=== PATIENT | male | born 1980 | race African-American/Black ===

== ENCOUNTER 2020-07-05 15:07 | Emergency (ER) | payer MEDICAID, SELFPAY ==
[2020-07-05] VITALS (8 sets, daily range): BP systolic 106–141; BP diastolic 71–85; PULSE 86–123; RESP 15–16; TEMP 36.2; O2SAT 98; BMI 23.3
--- NOTE | 2020-07-05 15:51 | EKG12_ITS ---
Test Reason : Blood Pressure : / mmHG Vent. Rate : 097 BPM Atrial Rate : 097 BPM P-R Int : 160 ms QRS Dur : 090 ms QT Int : 358 ms P-R-T Axes : 073 043 068 degrees QTc Int : 454 ms Normal sinus rhythm Normal ECG Confirmed by ELIEZER ELIZONDO, JOSEPH ([id number]), technical editor JOSELUIS CARBAJAL ([id number]) on 07/09/2020 10:54:32 AM Referred By: Confirmed By:JOSEPH MARTINS MD
--- NOTE | 2020-07-05 15:55 | ED.VIS.PSYCH ---
History of Present Illness Chief Complaint: Mental Health Informant: Patient, Enterprise Integration Developer Limited: Uncooperative Associated Symptoms: Paranoia, Visual Hallucinations, -. Negative for: Suicidal Thoughts Narrative: Patient is a 39-year-old male with history of paranoid schizophrenia presenting from [place] for psychiatric evaluation. Patient states he does not feel safe and has been feeling paranoid. He also associated Flonase anything for spirits. Patient denies any homicidal suicidal ideations. Patient relates this to the nursing staff but would not speak to me. He did not provide any history to me and only stared at me. Past Medical History Primary Care Physician: Care Physician,No Primary [Primary Care Provider] - Past Medical History: - - Paranoid schizophrenia Surgical History: noncontributory Lives: - - jail Smoking Status: Current every day smoker Review of Systems ROS: Unable to Obtain - Patient does not answer any questions for me Psych: Reports: - - Visual hallucinations, paranoia Physical Exam Vital Signs/Narrative: Vital Signs Temp Pulse Resp BP Pulse Ox 07/05/20 15:09 97.2 F L 123 H 15 117/85 H 98 Inital Vital Signs reviewed: Yes General: Well nourished, Well developed Head: Normocephalic, Atraumatic Eyes: Perrl, EOMI ENT: Moist mucous membranes, No rhinorrhea Neck: Supple, Nontender Cardiovascular: Regular rhythm, No murmurs, Tachycardia Respiratory: No distress, CTA bilaterally, Chest nontender Abdomen: Soft, Nontender, Nondistended, Normal bowel sounds Back: Nontender, Normal Inspection Extremities: Nontender, No Edema Skin: Normal color, No rash Neurological: Alert, Oriented x3, Cranial nerves II-XII grossly intact, Normal Strength, Normal Sensation Psych: Poverty of Speech, - - Withdrawn Diagnostic/Tx/Re-eval Clinical Impression(s) from Imaging Studies Chest X-Ray 07/05/20 16:10 IMPRESSION: Normal x-ray examination of the chest. Electronically Signed: Veto Bundy MD at 16:30 EST Tel , Service support , Laboratory Data 07/05/20 07/05/20 07/05/20 16:00 16:00 16:30 WBC 10.5 RBC 4.82 Hgb 15.1 Hct 43.7 MCV 90.7 MCH 31.3 MCHC 34.6 RDW Std Deviation 44.9 H RDW Coeff of Kavitha 13.4 Plt Count 221 MPV 9.7 Immature Gran % (Auto) 0.300 Neut % (Auto) 77.1 H Lymph % (Auto) 13.2 L [place] % (Auto) 6.7 Eos % (Auto) 2.3 Baso % (Auto) 0.4 Absolute Neuts (auto) 8.1 H Absolute Lymphs (auto) 1.39 Nucleated RBC % 0 Sodium 140 Potassium 4.1 Chloride 111 H Carbon Dioxide 26.0 Anion Gap 3 L BUN 10 Creatinine 1.13 Estim Creat Clear Calc 100.02 Est GFR (MDRD) Af Amer 92 Est GFR (MDRD) Non-Af 76 BUN/Creatinine Ratio 8.8 L Glucose 85 Calcium 8.9 Total Bilirubin 0.30 AST 14 L ALT 17 Alkaline Phosphatase 83 Total Protein 7.2 Albumin 3.7 Globulin 3.5 Albumin/Globulin Ratio 1.1 TSH 0.87 Urine Opiates Screen NEGATIVE Urine Methadone Screen NEGATIVE Ur Barbiturates Screen NEGATIVE Ur Phencyclidine Scrn NEGATIVE Ur Amphetamines Screen NEGATIVE U Methamphetamin-MDMA NEGATIVE U Benzodiazepines Scrn NEGATIVE Urine Cocaine Screen NEGATIVE U Cannabinoids Screen POSITIVE H Ur Drug Screen Comment - Rhythm Strip Rhythm Strip: Sinus Rhythm Rate: 97 Ectopy: None - EKG Initial EKG Interpretation: Sinus Rhythm, - - Normal sinus rhythm at a rate of of 97 Normal axis Normal intervals Normal ST segments Patient evaluated for increase psychiatric symptoms. Patient has displayed increased paranoia and is now having visual hallucinations. Patient is completely withdrawn on my examination and will not contribute at all to his history. [place] is subtheraputic. Patient is medically cleared and will be evaluated by case management for potential psychiatric placement. ED Disposition - Plan for ED Patient: Instructions: ED Schizophrenia, Paranoid Type Referrals: Care Physician,No Primary [Primary Care Provider] -
--- NOTE | 2020-07-05 16:10 | RAD_ITS ---
STUDY: X-RAY CHEST REASON FOR EXAM: Male, 39 years old. MENTAL HEALTH EVAL. HALLUCINATIONS. TECHNIQUE: Single AP portable view of the chest. COMPARISON: None. FINDINGS: The lungs are clear and expanded. There is no demonstrated pleural abnormality. Normal size heart. Normal mediastinum and betsy. Normal visualized pulmonary arteries. Normal visualized aortic arch and descending thoracic aorta. Normal visualized thoracic spine. Normal visualized ribs, clavicles, and shoulders. There is no demonstrated abnormality of the visualized soft tissue structures of the upper abdomen. RAD/Chest 1 View (Portable) IMPRESSION: Normal x-ray examination of the chest. Electronically Signed: Veto Bundy MD at 16:30 EST Tel , Service support ,
[2020-07-05 16:31] LABS: Absolute Lymphocyte Count 1.39 X10^3/uL (0.83-4.51); Absolute Neutrophil Count 8.1 X10^3/uL (2.0-7.7); Basophil# 0.04 X10^3/uL; Basophil% 0.4 % (0-1); Eosinophil# 0.24 X10^3/uL; Eosinophils% 2.3 % (0-5); Hematocrit 43.7 % (40-54); Hemoglobin 15.1 g/dL (13.0-16.5); Lymphocyte # 1.39 X10^3/ul (4.0); Lymphocyte % 13.2 % (19-41); Mean Corp Hgb Conc 34.6 g/dL (32-36); Mean Corpuscular Hgb 31.3 pg (27.0-32.0); Mean Corpuscular Volume 90.7 fL (80-94); Mean Platelet Vol. 9.7 fl (6.2-12.0); Monocyte# 0.71 X10^3/uL; Monocyte% 6.7 % (0-10); NRBC Flagged by Analyzer 0 % (0-5); Neutrophil # 8.11 X10^3/uL (2.7-7.7); Neutrophil % 77.1 % (47-70); Platelet Count 221 K/mm3 (150-450); RBC Distribution Width CV 13.4 % (11.6-14.6); RBC Distribution Width SD 44.9 fl (35.1-43.9); Red Blood Count 4.82 M/mm3 (4.6-6.2); White Blood Count 10.5 K/mm3 (4.4-11.0)
[2020-07-05 16:41] LABS: ALB/GLOB Ratio 1.1 RATIO (0.9-2.4); AST(SGOT) 14 U/L (15-37); Alanine Aminotransfer ALT/SGPT 17 U/L (16-61); Albumin, Serum 3.7 g/dL (3.2-5.0); Alkaline Phosphatase 83 U/L (45-117); Anion Gap 3 (5-15); BUN 10 mg/dL (7-18); BUN/Creat Ratio 8.8 RATIO (10-20); Calcium,Total 8.9 mg/dL (8.5-10.1); Chloride 111 mmol/L (98-107); Creatinine, Serum 1.13 mg/dL (0.70-1.30); EST Glomerular Filtration Rate 76 mL/min (>60); Est Glom Filt Rate - Afr Amer 92 mL/min (>60); Estimated Creatinine Clearance 100.02 ml/min; Globulin 3.5 g/dL (2.2-4.2); Glucose 85 mg/dL (74-106); Potassium 4.1 mmol/L (3.5-5.1); Protein, Total 7.2 g/dL (6.4-8.2); Sodium Level 140 mmol/L (136-145); Thyroid Stim Hormone (TSH) 0.87 uIU/mL (0.358-3.74)
[2020-07-05 17:01] LABS: Amphetamine Urine VISTA NEGATIVE (<1000 ng/mL); Barbiturate Urine VISTA NEGATIVE (< 200 ng/mL); Benzodiazepine Urine VISTA NEGATIVE (< 200 ng/mL); Cocaine Urine VISTA NEGATIVE (< 300 ng/mL); Ecstacy Urine VISTA NEGATIVE (< 500 ng/mL); Methadone Urine VISTA NEGATIVE (< 300 ng/mL); PCP Urine VISTA NEGATIVE (< 25 ng/mL); THC Urine VISTA POSITIVE (< 50 ng/mL); Vista UDS pH Range 6
--- NOTE | 2020-07-05 17:31 | CM.ED ---
SOCIAL WORK ASSESSMENT Informant: Dr. Soliz Reason for Consult: Mental Health Evaluation Chief Compliant: Patient brought in by squad from [facility]. Patient reported to nursing upon arrival that he needs help and wants to go somewhere I feel safe. Patient reports history of schizophrenia and is treated with medication. Marital/Social History: Single Living Situation: [facility] Support/Resources: Unknown History: No Education and Employment History: Unknown Mental Health Treatment/History: Patient reports history of schizophrenia and is treated with medication. Triggers/Stressors: Patient reported visual hallucinations to nurseDebbi. Coping Skills: Unknown Abuse Issues: Unknown Substance Abuse History: Patient tox screen is positive for marijuana. Risk to Self/Others: Suicidal- Patient reports history of suicidal ideation. Patient denied any current suicidal ideation to nursing. Homicidal- Patient denies homicidal ideation to nursing Mental Status Exam: Orientation- Memory- Appearance/General Behavior: unclean Mood/Affect: flat Communication Pattern: Patient does not respond to this worker's questions. Patient with blank stare at the wall. No eye contact. Thought Process: visual hallucinations reported to nursing, paranoia Judgment: unable to evaluate Assessment: Attempted to assess patient along with nurse who triaged patient. Patient will not make eye contact or communicate at this time. Patient reported to nurse upon arrival he does not feel safe. Patient voiced visual hallucinations, seeing floaters that are spirits. Collaboration with Dr. Soliz. Plan for inpatient psych for stabilization. This worker to facilitate placement. Plan: Referral to inpatient psych MARGARITA Leggett, PRODUCT GRADER
--- NOTE | 2020-07-05 18:07 | CM.ED ---
SOCIAL WORK Call to [facility] to check bed availability, spoke with [facility]. Per [facility], bed available and will review referral. Awaiting COVID-19 results at this time. Flores Lowe, MARKETING TRAFFIC COORDINATOR, LAND LEASING INFORMATION CLERK
--- NOTE | 2020-07-05 19:43 | CM.ED ---
SOCIAL WORK Received call from [facility] with additional questions regarding referral. Nurse to review with physician and get back to this worker. Flores Lowe, FILL PLANT OPERATOR, DIRECTOR OF OCCUPATIONAL HEALTH
--- NOTE | 2020-07-05 20:45 | CM.ED ---
SOCIAL WORK Patient accepted to [facility] by Dr. Bennett. Nurse to call report to [phone]. [place] to set up transport. Dr. Bnenett has suggested patient be medicated with 2mg Ativan IM. Dr. Hunt updated. Patient and nurse updated on acceptance to [facility]. Flores Lowe, ULTRASONIC SEAMING MACHINE OPERATOR, DRIER AND GRINDER TENDER
== END 2020-07-05 22:33 ==
LOC: ED 17:08
PROVIDERS: Emergency Provider Emergency Medicine
DX: F20.0 Paranoid schizophrenia (principal); F17.200 Nicotine dependence, unspecified, uncomplicated
CPT/HCPCS: 36415; 71045; 80053; 80178; 80307; 82077; 84443; 85025; 87426; 93005; 99285

== ENCOUNTER 2021-11-29 15:48 | Emergency (ER) | payer MEDICAID, SELFPAY ==
[2021-11-29 15:49] VITALS: BP 123/90; PULSE 90; RESP 16; TEMP 36.4; O2SAT 97; BMI 25.7
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
[2021-11-29] MEDS: Ziprasidone IM 20 MG/ML VIAL IM (16:24)
[2021-11-29 17:24] LABS: Absolute Lymphocyte Count 1.31 X10^3/uL (0.83-4.51); Absolute Neutrophil Count 3.1 X10^3/uL (2.0-7.7); Basophil# 0.02 X10^3/uL; Basophil% 0.4 % (0-1); Eosinophil# 0.06 X10^3/uL; Eosinophils% 1.2 % (0-5); Hematocrit 43.3 % (40-54); Lymphocyte # 1.31 X10^3/ul (0.83-4.51); Lymphocyte % 26.6 % (19-41); Mean Corp Hgb Conc 34.6 g/dL (32-36); Mean Corpuscular Hgb 31.3 pg (27.0-32.0); Mean Corpuscular Volume 90.2 fL (80-94); Mean Platelet Vol. 9.3 fl (6.2-12.0); Monocyte# 0.38 X10^3/uL; Monocyte% 7.7 % (0-10); NRBC Flagged by Analyzer 0 % (0-5); Neutrophil # 3.14 X10^3/uL (2.7-7.7); Neutrophil % 63.9 % (47-70); Platelet Count 212 K/mm3 (150-450); RBC Distribution Width CV 13.9 % (11.6-14.6); RBC Distribution Width SD 45.9 fl (35.1-43.9); White Blood Count 4.9 K/mm3 (4.4-11.0)
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
[2021-11-29 17:45] LABS: ALB/GLOB Ratio 1.1 RATIO (0.9-2.4); AST(SGOT) 12 U/L (15-37); Alanine Aminotransfer ALT/SGPT 15 U/L (16-61); Albumin, Serum 3.8 g/dL (3.2-5.0); Alkaline Phosphatase 82 U/L (45-117); Anion Gap 5 (5-15); BUN 6 mg/dL (7-18); BUN/Creat Ratio 5.6 RATIO (10-20); Chloride 107 mmol/L (98-107); Creatinine, Serum 1.07 mg/dL (0.70-1.30); EST Glomerular Filtration Rate 80 mL/min (>60); Est Glom Filt Rate - Afr Amer 97 mL/min (>60); Globulin 3.4 g/dL (2.2-4.2); Glucose 90 mg/dL (74-106); Potassium 3.9 mmol/L (3.5-5.1); Protein, Total 7.2 g/dL (6.4-8.2); Sodium Level 139 mmol/L (136-145)
[2021-11-29] MEDS: DiphenhydrAMINE 50 MG/ML Syringe 25 MG IM (18:26)
[2021-11-29] MEDS: LORazepam 2 MG/ML Syringe IM (18:27)
[2021-11-29] MEDS: Haloperidol Lactate 5 MG/ML Vial IM (18:30)
--- NOTE | 2021-11-29 18:31 | ED.RN ---
PT CON TINUES TO BE OUT IN THE HALLWAY SCREAMING. PT CONTINUES TO CHEW THE NICOTINE PATCH. PT ADVISED THAT RESTRAINTS WERE TO BE APPLIES. PT ASKS NO--MEDICATION ORDERED. PT ALLOWS IM INJECTIONS
[2021-11-29 18:47] LABS: Amphetamine Urine VISTA NEGATIVE (<1000 ng/mL); Barbiturate Urine VISTA NEGATIVE (< 200 ng/mL); Benzodiazepine Urine VISTA NEGATIVE (< 200 ng/mL); Cocaine Urine VISTA NEGATIVE (< 300 ng/mL); Ecstacy Urine VISTA NEGATIVE (< 500 ng/mL); Methadone Urine VISTA NEGATIVE (< 300 ng/mL); PCP Urine VISTA NEGATIVE (< 25 ng/mL); THC Urine VISTA NEGATIVE (< 50 ng/mL); Vista UDS pH Range 6
--- NOTE | 2021-11-29 20:03 | CM.ED ---
JENIFFER faxed referral to Neha Nelson, Veda Freire, [facility], [facility] and [facility] for review. Neha called and advised patient was declined due to acuity. JENIFFER received voice mail from Vanda at [facility]. No acute beds tonight but if he needs a bed tomorrow a NEW referral will need to be faxed. Krista Hampton
--- NOTE | 2021-11-29 21:58 | CM.ED ---
Sophy from [facility] called. She inquired as to patient's current status. JENIFFER spoke to NOA Wasserman who stated that patient was redirectable and was willing to take medication. RN advised that patient's volumne and speech were the issue. JENIFFER provided this updated to Sophy at [facility] [phone]. JENIFFER also faxed covid results to [facility]. JENIFFER also updated Sophy about patient's medications. Sophy said that staff will need to call her at 10:30 to update her on his presentation. JENIFFER agreed that staff or counseling distribution center supervisor will follow up with her in 1 hour. JENIFFER called parts counterperson for the Counseling Center and requested call back. JENIFFER advised registration that patient has an guardian, Scott Arriaga [phone]. Krista BILL
[2021-11-29 22:34] VITALS: RESP 16
--- NOTE | 2021-11-29 22:47 | ED.RN ---
Sophy from [facility] calls and gives accepting information. Pt is accepted by Dr Nita Solis to the [facility]. Call [phone] for report.
--- NOTE | 2021-11-29 23:11 | ED.RN ---
BENNETT AT [facility] UPDATED ON PATIENT'S STATUS. REPORT CALLED TO ASHLEY LATHAM ON THE MAPLE UNIT.
[2021-11-30 00:54] VITALS: BP 97/62; PULSE 79; RESP 16; TEMP 36.4; O2SAT 100
[2021-11-30 01:00] VITALS: RESP 16
[2021-11-30 02:00] VITALS: RESP 16
[2021-11-30 03:00] VITALS: RESP 15
--- NOTE | 2021-11-30 03:05 | ED.RN ---
PHYSCIANS CALLED AND SAID THEIR CREW WAS GOING TO TIME OUT AND THAT THIS PATIENT WOULDN'T LEAVE UNTIL 0600 OR AFTER
[2021-11-30 06:00] VITALS: BP 116/78; PULSE 79; RESP 16; TEMP 36.7; O2SAT 100
--- NOTE | 2021-11-30 06:48 | ED.RN ---
PER AMBAR WITH PHYSICIANS CREW IS IN ROUTE AND SHOULD ARRIVE IN 10-15 MINUTES
== END 2021-11-30 07:24 ==
PROVIDERS: Emergency Provider Emergency Medicine; Visit Provider Emergency Medicine
DX: F20.9 Schizophrenia, unspecified (principal); F17.210 Nicotine dependence, cigarettes, uncomplicated
CPT/HCPCS: 80053; 80307; 82077; 85025; 87811; 93005; 99284; J3486

== ENCOUNTER 2024-04-04 13:02 | Emergency (ER) | payer MEDICAID, SELFPAY ==
[2024-04-04 13:03] VITALS: BP 125/83; PULSE 113; RESP 20; TEMP 36.4; O2SAT 100; BMI 19.7
--- NOTE | 2024-04-04 13:22 | ED.RN ---
PT CALLS OUT FOR NURSE. THIS RN IN ROOM. PT REQUESTS COFFEE AND NICOTINE PATCH. THIS RN INFORMS PT THAT WE NEED TO WAIT ON DOCTOR BEFORE WE CAN DO THIS. PATIENT PROVIDES URINE SAMPLE. THIS RN DRAWING BLOOD AND PT STATES PLEASE JUST PUT SOME AIR BUBBLES IN THERE WHILE YOU ARE DOING THAT PT STATES HE IS SEEING PEOPLE WHO ARE NOT THERE SOME OF THEM ARE TELLING ME I AM BAD AND I DESERVE TO SITTER AT BEDSIDE FOR PATIENT SAFETY.
--- NOTE | 2024-04-04 13:34 | EKG12_ITS ---
Test Reason : MEDICAL CLEARANCE Blood Pressure : */* mmHG Vent. Rate : 87 BPM Atrial Rate : 87 BPM P-R Int : 146 ms QRS Dur : 90 ms QT Int : 392 ms P-R-T Axes : 78 24 69 degrees QTcB Int : 471 ms Normal sinus rhythm Normal ECG Confirmed by ELIEZER ELIZONDO, JOSEPH ([id number]), mapping editor JOSELUIS CARBAJAL ([id number]) on 04/05/2024 1:50:34 PM Referred By: Confirmed By: JOSEPH MARTINS MD
[2024-04-04 13:43] VITALS: BP 125/60; PULSE 98; RESP 16; O2SAT 97
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
[2024-04-04 13:56] LABS: Absolute Lymphocyte Count 2.66 X10^3/uL (0.83-4.51); Absolute Neutrophil Count 9.3 X10^3/uL (2.0-7.7); Basophil# 0.06 X10^3/uL; Basophil% 0.4 % (0-1); Eosinophils% 0.7 % (0-5); Hematocrit 43.1 % (40-54); Hemoglobin 14.9 g/dL (13.0-16.5); Lymphocyte # 2.66 X10^3/ul (0.83-4.51); Lymphocyte % 19.6 % (19-41); Mean Corp Hgb Conc 34.6 g/dL (32-36); Mean Corpuscular Hgb 30.7 pg (27.0-32.0); Mean Corpuscular Volume 88.9 fL (80-94); Mean Platelet Vol. 9.6 fl (6.2-12.0); Monocyte# 1.36 X10^3/uL; NRBC Flagged by Analyzer 0 % (0-5); Neutrophil # 9.33 X10^3/uL (2.7-7.7); Neutrophil % 68.8 % (47-70); Platelet Count 219 K/mm3 (150-450); RBC Distribution Width SD 42.5 fl (35.1-43.9); Red Blood Count 4.85 M/mm3 (4.6-6.2); White Blood Count 13.6 K/mm3 (4.4-11.0)
[2024-04-04 14:06] LABS: Alcohol, Blood (Medical)-Serum < 3.0 mg/dL
[2024-04-04 14:09] LABS: Amphetamine Urine VISTA NEGATIVE (<1000 ng/mL); Barbiturate Urine VISTA NEGATIVE (< 200 ng/mL); Benzodiazepine Urine VISTA NEGATIVE (< 200 ng/mL); Cocaine Urine VISTA NEGATIVE (< 300 ng/mL); Ecstacy Urine VISTA NEGATIVE (< 500 ng/mL); Methadone Urine VISTA NEGATIVE (< 300 ng/mL); PCP Urine VISTA NEGATIVE (< 25 ng/mL); THC Urine VISTA POSITIVE (< 50 ng/mL); Vista UDS pH Range 6
[2024-04-04 14:11] LABS: ALB/GLOB Ratio 0.7 RATIO (0.9-2.4); AST(SGOT) 11 U/L (15-37); Alanine Aminotransfer ALT/SGPT 24 U/L (16-61); Albumin, Serum 3.1 g/dL (3.2-5.0); Alkaline Phosphatase 75 U/L (45-117); Anion Gap 7 (5-15); BUN 11 mg/dL (7-18); BUN/Creat Ratio 12.2 RATIO (10-20); Calcium,Total 9.2 mg/dL (8.5-10.1); Chloride 109 mmol/L (98-107); EST Glomerular Filtration Rate 96 mL/min (>60); Est Glom Filt Rate - Afr Amer 117 mL/min (>60); Estimated Creatinine Clearance 102.08 ml/min; Globulin 4.2 g/dL (2.2-4.2); Glucose 84 mg/dL (74-106); Protein, Total 7.3 g/dL (6.4-8.2); Sodium Level 142 mmol/L (136-145)
[2024-04-04] MEDS: Ziprasidone IM 20 MG/ML VIAL IM (15:12)
[2024-04-04] MEDS: Haloperidol Lactate 5 MG/ML Vial IM (16:14)
[2024-04-04] MEDS: LORazepam 2 MG/ML Syringe IM (16:14)
[2024-04-04] MEDS: DiphenhydrAMINE 50 MG/ML Syringe IM (16:14)
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
--- NOTE | 2024-04-04 17:14 | CM.ED ---
Social Work This SW attempted to contact [facility] to speak with Domo, the group leader semiconductor processing. When the phone was answered, person identified himself as Jv. This SW introduced self and role at [facility] and that I was calling regarding Vinicio Becerra. Jv stated he didnt know who that was and when asked to confirm his phone number, gave this SW a different number than was dialed.([phone]). This SW then called back to [facility], call went to voicemail. Shelli Gloria, BACK STAYER, TERRAZZO FINISHER
--- NOTE | 2024-04-04 17:21 | CM.ED ---
Social Work SW called [facility] to determine if they had male beds available, they stated they could not verify any open beds due to admissions and discharges but to send referral over and they would give it to their regional medical director to review. Referral sent. [facility] called to determine if they had male beds available, stated they do have openings. Referral sent. Plan: Inpatient psychiatric hospitalization pending acceptance. Shelli Gloria, VINEYARDIST, CEREAL MILLER
--- NOTE | 2024-04-04 17:53 | CM.ED ---
Social Work [facility] called SW to ask if patient has a discharging location post inpatient hospitalization. SW explained that an attempt was made to contact assisted x 2 to ask if patient still has a bed, however neither time were able to speak to anyone regarding patient. Shelli Gloria, CIGAR HEAD PUNCHER, RECREATION COUNSELOR
--- NOTE | 2024-04-04 17:58 | CM.ED ---
Social Work [facility] called and accepted patient. Patient will be going to their ITU, attending is Dr. Hansen. Nurse to nurse phone number [phone]. All information given to community health coordinator. Patients guardian called and updated that patient was accepted at [facility] and would be transported this evening. Guardian also updated that [facility] had asked if patient was able to return to the long term and that had notified [facility] that two attempts to contact group were made but was not able to speak to anyone regarding patient. Guardian stated he was also unsure and would contact the long term tomorrow to determine patients status. MARGARITA Winchester [facility]
--- NOTE | 2024-04-04 18:16 | ED.RN ---
REPORT CALLED TO THOM LATHAM AT [facility].
[2024-04-04] MEDS: Nicotine Polacrilex 2 MG GUM PO (18:18)
[2024-04-04 20:02] VITALS: BP 105/87; PULSE 89; RESP 18; TEMP 36.7; O2SAT 98
== END 2024-04-04 21:42 ==
PROVIDERS: Emergency Provider Emergency Medicine; Visit Provider Emergency Medicine
DX: F20.9 Schizophrenia, unspecified (principal); F31.9 Bipolar disorder, unspecified; R45.6 Violent behavior; F17.210 Nicotine dependence, cigarettes, uncomplicated
CPT/HCPCS: 80053; 80307; 82077; 85025; 93005; 96372; 99284; J3486